=== PATIENT | male | born 1970 | race Caucasian/White ===

== ENCOUNTER 2017-04-09 17:34 | Emergency (ER) | payer SELFPAY ==
[~2017-04-09] VITALS: Ht 180.3 cm; Wt 93.0 kg
--- NOTE | 2017-04-09 18:17 | Emergency Room Report ---
History of Present Illness General Chief Complaint: Hypertension Source: Patient Present Illness HPI The patient is a 46-year-old male presenting for high blood pressure, dizziness , and headache. He states that he has not been taking his Ramipril. Pain is described as a 2/10 dull ache to the back of the head and does not radiate. Denies any provoking factors. He denies any other symptoms including N, V, F, chills, SOB, CP, numbness/tingling, back pain Allergies: Coded Allergies: No Known Allergies (Unverified , 04/09/17) Patient History Past Medical History: see triage record Pertinent Family History: none Reviewed Nursing Documentation: PMH: Agreed, PSxH: Agreed Nursing Documentation-PMH Past Medical History: No History, Except For Hx Hypertension: Yes Hx Asthma: Yes Review of Systems All Other Systems: negative except mentioned in HPI Physical Exam Vital Signs Date Time Temp Pulse Resp B/P Pulse Ox O2 Delivery O2 Flow Rate FiO2 04/09/17 17:39 98.1 86 14 186/112 97 Room Air Sp02 EP Interpretation: reviewed, normal General Appearance: no apparent distress, alert, GCS 15, non-toxic Head: normocephalic, atraumatic Eyes: bilateral eye PERRL, bilateral eye normal inspection ENT: hearing grossly normal, normal pharynx, no angioedema, normal voice Neck: full range of motion, supple/symm/no masses Respiratory: chest non-tender, lungs clear, normal breath sounds, no retraction , no accessory muscle use, speaking full sentences Cardiovascular #1: normal inspection, regular rate, rhythm, no edema Gastrointestinal: normal bowel sounds, non tender, soft, non-distended, no guarding, no rebound Musculoskeletal: back normal, gait/station normal, normal range of motion, non- tender Neurologic: alert, oriented x3, responsive, motor strength/tone normal, sensory intact, speech normal Psychiatric: judgement/insight normal, memory normal, mood/affect normal, no suicidal/homicidal ideation Skin: normal color, no rash, warm/dry, well hydrated Medical Decision Making PA Attestation Dr. Alfaro is my supervising physician. Patient management was discussed with my supervising physician Diagnostic Impression: Primary Impression: Hypertension Qualified Codes: I10 - Essential (primary) hypertension ER Course The patient is a 46-year-old male presenting for high blood pressure, dizziness , and headache Differential diagnosis include but not limited to ACS, CVA, AAA, anxiety, essential HTN, migraine, among others PE: blood pressure is significantly elevated. A&Ox3 HEENT unremarkable. RRR. Chest non tender Lungs CTA bilat Abd is soft and non tender CN II-XII intact EKG shows no acute findings Labs unremarkable CT head unremarkable Pt is given one does of clonidine and is feeling better BP is still significantly elevated and he is given another dose. He will be discharged home with a prescription for lisinopril and needs to followup with his primary doctor soon as possible. He was informed of how important it is to take his blood pressure medication as directed. ER precautions are given Laboratory Tests Test 04/09/17 18:11 04/09/17 19:10 White Blood Count 8.9 K/UL (4.8-10.8) Red Blood Count 5.71 M/UL (4.70-6.10) Hemoglobin 17.8 G/DL (14.2-18.0) Hematocrit 51.8 % (42.0-52.0) Mean Corpuscular Volume 91 FL (80-99) Mean Corpuscular Hemoglobin 31.2 PG (27.0-31.0) H Mean Corpuscular Hemoglobin Concent 34.3 G/DL (32.0-36.0) Red Cell Distribution Width 11.7 % (11.6-14.8) Platelet Count 193 K/UL (150-450) Mean Platelet Volume 7.5 FL (6.5-10.1) Neutrophils (%) (Auto) 68.3 % (45.0-75.0) Lymphocytes (%) (Auto) 21.1 % (20.0-45.0) Monocytes (%) (Auto) 6.0 % (1.0-10.0) Eosinophils (%) (Auto) 3.4 % (0.0-3.0) H Basophils (%) (Auto) 1.2 % (0.0-2.0) Sodium Level 143 mEQ/L (135-145) Potassium Level 3.7 mEQ/L (3.4-4.9) Chloride Level 101 mEQ/L (98-107) Carbon Dioxide Level 28 mEQ/L (20-30) Anion Gap 14 (5-15) Blood Urea Nitrogen 15 mg/dL (7-23) Creatinine 0.9 mg/dL (0.7-1.2) Estimate Glomerular Filtration Rate > 60 mL/min (>60) Glucose Level 152 mg/dL (74-106) H Calcium Level 9.8 mg/dL (8.6-10.2) Total Bilirubin 0.4 mg/dL (0.0-1.2) Aspartate Amino Transferase (AST) 24 U/L (5-40) Alanine Aminotransferase (ALT) 48 U/L (3-41) H Alkaline Phosphatase 74 U/L (40-129) Total Creatine Kinase 81 U/L (38-174) Creatine Kinase MB 2.0 ng/mL (< 6.7) Creatine Kinase MB Relative Index 2.4 Troponin I < 0.30 ng/mL (<=0.30) Total Protein 7.2 g/dL (6.6-8.7) Albumin 4.6 g/dL (3.5-5.2) Globulin 2.6 g/dL Albumin/Globulin Ratio 1.7 (1.0-2.7) Urine Opiates Screen Negative (NEGATIVE) Urine Barbiturates Screen Negative (NEGATIVE) Phencyclidine (PCP) Screen Negative (NEGATIVE) Urine Amphetamines Screen Negative (NEGATIVE) Urine Benzodiazepines Screen Negative (NEGATIVE) Urine Cocaine Screen Positive (NEGATIVE) H Urine Marijuana (THC) Screen Negative (NEGATIVE) Lab Results Impression Blood work unremarkable. + for cocaine Chest X-Ray Diagnostic Results Chest X-Ray Diagnostic Results : Chest X-Ray Ordered: Yes # of Views/Limited/Complete: 1 View Indication: Chest Pain EP Interpretation: Yes Interpretation: no consolidation, no effusion, no pneumothorax, no acute cardiopulmonary disease Impression: No acute disease Interpreting ER Provider: Dr. Angelina CRANDALL Scribe Text I am acting as scribe for my supervising physician. My supervising physician's interpretation of the chest xrays are there is no consolidation, no effusion, no acute cardiopulmonary disease, no pneumothorax CT/MRI/US Diagnostic Results CT/MRI/US Diagnostic Results : Imaging Test Ordered: CT head Impression unremarkable Last Vital Signs Date Time Temp Pulse Resp B/P Pulse Ox O2 Delivery O2 Flow Rate FiO2 04/09/17 18:15 195/100 04/09/17 17:39 98.1 86 14 97 Room Air Status: improved Disposition: HOME, SELF-CARE Condition: Stable Scripts Lisinopril (LISINOPRIL*) 20 Mg Tablet 20 MG ORAL DAILY, #30 TAB Prov: ZHANG NEGRON 04/09/17 ZHANG NEGRON Apr 09, 2017 18:17
[2017-04-09 18:28] LABS: BASOPHILS % (AUTO) 1.2 % (0.0-2.0); EOSINOPHILS % (AUTO) 3.4 % (0.0-3.0); LYMPHOCYTES % (AUTO) 21.1 % (20.0-45.0); MEAN CORPUSCULAR HEMOGLOBIN 31.2 PG (27.0-31.0); MEAN CORPUSCULAR HGB CONC 34.3 G/DL (32.0-36.0); MEAN CORPUSCULAR VOLUME 91 FL (80-99); MEAN PLATELET VOLUME 7.5 FL (6.5-10.1); NEUTROPHILS % (AUTO) 68.3 % (45.0-75.0); PLATELET COUNT 193 K/UL (150-450); RED BLOOD COUNT 5.71 M/UL (4.70-6.10); RED CELL DISTRIBUTION WIDTH 11.7 % (11.6-14.8); WHITE BLOOD COUNT 8.9 K/UL (4.8-10.8)
[2017-04-09 18:31] VITALS: BP 199/102
[2017-04-09 18:54] LABS: TROPONIN I < 0.30 ng/mL (<=0.30)
[2017-04-09 18:57] LABS: ALANINE AMINOTRANSFERASE 48 U/L (3-41); ALBUMIN/GLOBULIN RATIO 1.7 (1.0-2.7); ANION GAP 14 (5-15); ASPARTATE AMINO TRANSFERASE 24 U/L (5-40); CALCIUM 9.8 mg/dL (8.6-10.2); CARBON DIOXIDE 28 mEQ/L (20-30); CHLORIDE 101 mEQ/L (98-107); CREATININE 0.9 mg/dL (0.7-1.2); GLOMERULAR FILTRATION RATE > 60 mL/min (>60); HEMOLYSIS 10; POTASSIUM 3.7 mEQ/L (3.4-4.9); SODIUM 143 mEQ/L (135-145); TOTAL PROTEIN 7.2 g/dL (6.6-8.7)
[2017-04-09] MEDS ORDERED: Lisinopril 10mg tab ORAL ONE (19:30)
[2017-04-09] MEDS ORDERED: LISINOPRIL20 MG ORAL (19:48)
[2017-04-09 20:18] VITALS: BP 172/76
--- NOTE | 2017-04-10 09:27 | Diagnostic Imaging Report ---
Indication: Shortness of breath Technique: One view of the chest Comparison: none Findings: Lungs and pleural spaces are clear. Heart size is upper limits of normal. Impression: No acute process
--- NOTE | 2017-04-12 08:04 | Diagnostic Imaging Report ---
Indication: Dizziness and vertigo Technique: Continuous helical CT scanning of the head was performed without intravenous contrast material. Axial and coronal 5 mm sections were generated. Radiation dose was minimized using automated exposure control Dose: Total Dose Length Product - DLP [address] Dose Index - CTDIvol(s) 70.38 mGy. Comparison: None Findings: The ventricular system is normal in size and configuration. There is no shift of midline structures. No abnormal extra-axial fluid collections are noted. There is no evidence of intracerebral bleeding. No other abnormal high or low density areas are noted within the brain. Small lipoma is seen in the right posterior parietal scalp. Intact calvarium. Visualized orbits are unremarkable. There is minimal ethmoid sinus disease. Impression: Normal CT scan of the head without contrast material. Incidental finding right posterior parietal scalp lipoma This agrees with the preliminary interpretation provided overnight by Dr. Hess The CT scanner at [facility] is accredited by the [employer] and the scans are performed using protocols designed to limit radiation exposure to as low as reasonably achievable to attain images of sufficient resolution adequate for diagnostic evaluation.
--- NOTE | 2017-04-12 18:18 | Cardiology Report ---
APPROVED REPORT EKG Measurement Heart [id number] Normal sinus rhythm Biatrial enlargement Septal infarct, age undetermined Abnormal ECG
== END 2017-04-09 20:18 | disposition home or self-care (01) ==
LOC: EMR 19:15
DX: I10 Essential (primary) hypertension (principal); J45.909 Unspecified asthma, uncomplicated; Z91.14 Patient's other noncompliance with medication regimen; R51 Headache; R42 Dizziness and giddiness
CPT/HCPCS: 36415; 70450; 71010; 80053; 80300; 82550; 82553; 84484; 85025; 93005; 96360; 96374